=== PATIENT | female | born 1995 | race American Indian/Alaskan Native ===

== ENCOUNTER 2021-07-11 15:33 | Emergency (ER) | payer SELFPAY ==
[2021-07-11 16:47] VITALS: BP 107/50
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
== END 2021-07-11 18:45 | disposition home or self-care (01) ==
LOC: ED 15:33
DX: S00.81XA Abrasion of other part of head, initial encounter (principal); M25.561 Pain in right knee; M54.50 Low back pain, unspecified; V49.59XA Passenger injured in collision with other motor vehicles in traffic accident, initial encounter; X58.XXXA Exposure to other specified factors, initial encounter; Y93.89 Activity, other specified; Y92.89 Other specified places as the place of occurrence of the external cause; Y99.8 Other external cause status
CPT/HCPCS: 70450; 72100; 99284